=== PATIENT | male | born 1990 | race Caucasian/White ===

== ENCOUNTER 2022-05-24 15:07 | Emergency (ER) | payer SELFPAY ==
[2022-05-24] MEDS ORDERED: LIDOCAINE 1% W/EPI 1:100,000 MDV 20 ML VIAL ONE (15:47)
[2022-05-24] MEDS ORDERED: TETANUS & DIPHTHERIA TOX,ADULT 0.5 ML VIAL ONE (15:47)
--- NOTE | 2022-05-24 16:50 | EDPHYS ---
Physician Documentation [facility] Name: Ottoniel Madrigal Age: 32 yrs Sex: Male : 1990 Arrival Date: 05/24/2022 Time: 15:10 Bed 10 Private MD: ED Physician Tariq Hodges HPI: 05/24 15:40 This 32 yrs old Male presents to ER via Ambulatory with complaints of Laceration To Leg.cp 15:40 The patient has a laceration related to: working, sharp edge of sheet metal. cp 15:40 The laceration(s) is(are) located on the anterior aspect right lower leg. Onset: The cp symptoms/episode began/occurred just prior to arrival. Associated signs and symptoms: The patient has no apparent associated signs or symptoms. Historical: - Allergies: 15:29 No Known Allergies; iw - PMHx: 15:29 None; iw - Immunization history:: Last tetanus immunization: unknown. - Social history:: Smoking status: unknown. ROS: 15:45 Constitutional: Negative for body aches, chills, fever, poor PO intake. cp 15:45 Cardiovascular: Negative for chest pain. cp 15:45 Respiratory: Negative for cough, shortness of breath, wheezing. 15:45 Abdomen/GI: Negative for abdominal pain, nausea, vomiting, and diarrhea. 15:45 Skin: Positive for laceration(s), of the anterior aspect right lower leg. 15:45 Neuro: Negative for altered mental status, headache, numbness, weakness. 15:45 All other systems are negative. Exam: 15:50 Head/Face: Normocephalic, atraumatic. cp 15:50 Constitutional: The patient appears in no acute distress, alert, awake, non-toxic, well developed, well nourished. 15:50 Chest/axilla: Inspection: normal. cp 15:50 Cardiovascular: Rate: normal. 15:50 Respiratory: the patient does not display signs of respiratory distress, Respirations: normal. 15:50 Musculoskeletal/extremity: Extremities: noted in the anterior aspect right lower leg: laceration, swelling, tenderness, mild bleeding, Perfusion: the extremity is normally perfused throughout, Sensation intact. Vital Signs: 15:28 BP 159 / 85; Pulse 90; Resp 16; Temp 97.6; Pulse Ox 97% ; iw 16:36 BP 155 / 82; Pulse 86; Resp 18; Pulse Ox 98% on R/A; Pain 7/10; ld1 Laceration: 17:00 Wound Repair of 4cm ( 1.6in ) subcutaneous laceration to anterior aspect right lower cp leg. Linear shaped.. Distal neuro/vascular/tendon intact. Anesthesia: Wound infiltrated with 8 mls of 1% lidocaine w/ Epi. Wound prep: Moderate cleansing by nurse, Wound irrigation by me. Skin closed with 7 4-0 Prolene using interrupted sutures and sterile technique. Dressed with 4x4's. Patient tolerated well. MDM: 15:31 Patient medically screened. cp 16:00 Differential diagnosis: superficial laceration, tendon injury, vascular injury. cp 16:49 Data reviewed: vital signs, nurses notes, radiologic studies, plain films. cp 16:49 Test interpretation: by ED physician or midlevel provider: plain radiologic studies. cp Counseling: I had a detailed discussion with the patient and/or guardian regarding: the historical points, exam findings, and any diagnostic results supporting the discharge/admit diagnosis, radiology results, the need for outpatient follow up, a family practitioner, to return to the emergency department if symptoms worsen or persist or if there are any questions or concerns that arise at home. Response to treatment: the patient's symptoms have markedly improved after treatment, and as a result, I will discharge patient. Special discussion: wound care, monitor for signs of infection, suture removal in 10-14 days, signs and symptoms of compartment syndrome. 05/24 15:35 Order name: XRAY Tib Fib RIGHT; Complete Time: 17:00 05/24 17:00 Interpretation: Report reviewed. 05/24 15:35 Order name: Wound Care: please clean and irrigate wound; Complete Time: 15:54 05/24 15:35 Order name: Dressing - Wound; Complete Time: 15:40 05/24 15:35 Order name: Gloves, Sterile; Complete Time: 15:40 05/24 15:35 Order name: Setup Suture Tray; Complete Time: 15:40 05/24 16:48 Order name: Wound dressing; Complete Time: 17:03 cp 05/24 16:48 Order name: Crutches; Complete Time: 17:03 cp Administered Medications: 15:44 Drug: Tetanus Toxoid,Adsorbed 0.5 ml {Case Operator: [employer]. Exp: 02/03/2024. Lot jl7 #: [id number]. } Route: IM; Site: right deltoid; 16:46 Follow up: Response: No adverse reaction ld1 16:46 Follow up: Response: (VIS) Vaccine information sheet provided today. Questions and/or ld1 concerns addressed. VIS edition date: Jun 16, 2021. 16:46 Drug: Lidocaine-Epinephrine -1%: (1:100,000) 10 ml {Note: Administered by manpreet Ferreira.} Volume: 20 ml; Route: Infiltration; 16:46 Follow up: Response: No adverse reaction ld1 Disposition: 18:02 Attestation: The patient's history, exam findings, diagnostics, and a summary of any [facility] interventions or procedures was reviewed in detail with Alec CARRILLO. Disposition Summary: 05/24/22 16:49 Discharge Ordered Location: Home cp Problem: new cp Symptoms: have improved cp Condition: Stable cp Diagnosis - Laceration without foreign body of lower leg - right cp Followup: cp - With: Private Physician - When: 10 - 14 days - Reason: Staple/Suture removal Discharge Instructions: - Discharge Summary Sheet cp - Laceration Care, Adult cp Forms: - Medication Reconciliation Form cp - Thank You Letter cp - Antibiotic Education cp - Prescription Opioid Use cp Prescriptions: - Ibuprofen 800 mg Oral Tablet - take 1 tablet by ORAL route every 8 hours As needed take with food; 30 tablet; cp Refills: 0, Product Selection Permitted Signatures: Dispatcher [employer] Casie Villarreal RN RN iw Page, Corey, PA PA cp Chris Chao RN RN jl7 Olena Loo RN RN ld1 Tariq Hodges MD MD [id number]
--- NOTE | 2022-05-24 16:50 | ER ---
Nurse's Notes [facility] Name: Ottoniel Madrigal Age: 32 yrs Sex: Male : 1990 Arrival Date: 05/24/2022 Time: 15:10 Bed 10 Private MD: Diagnosis: Laceration without foreign body of lower leg-right Presentation: 05/24 15:28 Chief complaint: Patient states: was pulling insulation from roof, somehow caught him iw on right ankle /baker area. Coronavirus screen: At this time, the client does not indicate any symptoms associated with coronavirus-19. Ebola Screen: Patient negative for fever greater than or equal to 101.5 degrees Fahrenheit, and additional compatible Ebola Virus Disease symptoms Patient denies exposure to infectious person. Patient denies travel to an Ebola-affected area in the 21 days before illness onset. No symptoms or risks identified at this time. Complicating Factors: There are no complicating factors for this patient. Initial Sepsis Screen: Does the patient meet any 2 criteria? No. Patient's initial sepsis screen is negative. Does the patient have a suspected source of infection? No. Patient's initial sepsis screen is negative. Risk Assessment: Do you want to hurt yourself or someone else? Patient reports no desire to harm self or others. Onset of symptoms was May 24, 2022. 15:28 Method Of Arrival: Ambulatory iw 15:28 Acuity: LETHA 4 iw Historical: - Allergies: 15:29 No Known Allergies; iw - PMHx: 15:29 None; iw - Immunization history:: Last tetanus immunization: unknown. - Social history:: Smoking status: unknown. Screenin:54 Abuse screen: Denies threats or abuse. Denies injuries from another. Nutritional jl7 screening: No deficits noted. Tuberculosis screening: No symptoms or risk factors identified. Fall Risk None identified. Assessment: 15:54 General: Appears in no apparent distress. uncomfortable, Behavior is calm, cooperative, jl7 appropriate for age. Pain: Denies pain. Neuro: Level of Consciousness is awake, alert, obeys commands, Oriented to person, place, time, situation. Cardiovascular: Patient's skin is warm and dry. Respiratory: Airway is patent Respiratory effort is even, unlabored, Respiratory pattern is regular, symmetrical. Derm: Skin is pink, warm \T\ dry. Musculoskeletal: Range of motion: intact in all extremities. Injury Description: Laceration sustained to right baker is 2.6 to 7.5 cm long, was sustained 30-60 minutes ago. is bleeding a small amount. 16:36 Reassessment: Patient appears in no apparent distress at this time. Patient is alert, ld1 oriented x 3, equal unlabored respirations, skin warm/dry/pink. Vital Signs: 15:28 BP 159 / 85; Pulse 90; Resp 16; Temp 97.6; Pulse Ox 97% ; iw 16:36 BP 155 / 82; Pulse 86; Resp 18; Pulse Ox 98% on R/A; Pain 7/10; ld1 ED Course: 15:10 Patient arrived in ED. am2 15:18 Alec Lutz PA is PHCP. cp 15:19 Tariq Hodges MD is Attending Physician. cp 15:29 Triage completed. iw 15:29 Arm band placed on. iw 15:54 Patient has correct armband on for positive identification. Bed in low position. Call jl7 light in reach. Side rails up X 1. 15:54 Wound care: to laceration located on right baker was cleaned with Betadine, irrigated jl7 with normal saline, Patient tolerated well. 15:59 Chris Chao RN is Primary Nurse. jl7 16:48 XRAY Tib Fib RIGHT In Process Unspecified. EDMS 17:03 Assist provider with laceration repair on right leg using sutures. Set up tray. ld1 Performed by Alec CARRILLO Dressed with Kerlix, Patient tolerated well. 17:04 Patient did not have IV access during this emergency room visit. ld1 Administered Medications: 15:44 Drug: Tetanus Toxoid,Adsorbed 0.5 ml {Size Tester: [employer]. Exp: 02/03/2024. Lot jl7 #: [id number]. } Route: IM; Site: right deltoid; 16:46 Follow up: Response: No adverse reaction ld1 16:46 Follow up: Response: (VIS) Vaccine information sheet provided today. Questions and/or ld1 concerns addressed. VIS edition date: Jun 16, 2021. 16:46 Drug: Lidocaine-Epinephrine -1%: (1:100,000) 10 ml {Note: Administered by manpreet Ferreira.} Volume: 20 ml; Route: Infiltration; 16:46 Follow up: Response: No adverse reaction ld1 Medication: 15:54 Vaccine Information Statement (VIS) provided today. Questions and/or concerns jaycee addressed. VIS edition date: June 16, 2021. Outcome: 16:49 Discharge ordered by . cp 17:03 Discharged to home ambulatory, with crutches. ld1 17:03 Condition: stable 17:03 Discharge instructions given to patient, Instructed on discharge instructions, follow up and referral plans. medication usage, Demonstrated understanding of instructions, follow-up care, medications, Prescriptions given X 1. 17:04 Patient left the ED. ld1 Signatures: Dispatcher [employer] EDMS Casie Argueta RN RN iw Alec Lutz, GERARDO PA Chris Garcia RN RN jl7 Arabella Anton Lauren RN RN ld1 Corrections: (The following items were deleted from the chart) 15:30 15:28 Resp 16bpm; Pulse Ox 97%; Temp 97.6F; iw iw
--- NOTE | 2022-05-24 16:53 | RAD REPORT ---
EXAM DESCRIPTION: RAD - Tib Fib Right - 05/24/2022 4:46 pm CLINICAL HISTORY: injury COMPARISON: No comparisons FINDINGS: No fracture or dislocation is seen.
[2022-05-24 17:13] VITALS: TEMP 97.6
[2022-05-24 17:20] VITALS: BP 155/82; O2SAT 98
== END 2022-05-24 17:04 | disposition home or self-care (01) ==
LOC: ER 15:07
PROC: 0JQN0ZZ Repair Right Lower Leg Subcutaneous Tissue and Fascia, Open Approach (ICD-10-PCS; principal; 2022-05-24)
DX: S81.811A Laceration without foreign body, right lower leg, initial encounter (principal); Z23 Encounter for immunization
CPT/HCPCS: 90471; 90714; 99284

== ENCOUNTER 2024-11-10 15:04 | Emergency (ER) | payer OTHER, SELFPAY ==
--- OUTSIDE RECORDS SUMMARY | 2024-11-10 15:06 | XMS REPORT | Continuity of Care Document ---
Author Name Unknown Address [address] [place] [address] [facility] Address [address] [place] [address] Care Team Providers Care [place] Aide Name Role Phone Elisa Saleh Primary Care Physician [phone] Yan_W Attending Clinician Unavailable Yan_W Admitting Clinician Unavailable Allergies, Adverse Reactions, Alerts Allergy Name Allergy Type Status Severity Reaction(s) Onset Date Inactive Date Treating Clinician Comments Source Cefaclor - Oral Propensi ty to adverse reaction to drug Active 01-17 00:00: 00 Jovan Singh Medications Ordered Medication Name Filled Medication Name Start Date Stop Date Current Medication? Ordering Clinician Indication Dosage Frequency Signature (SIG) Comments Components Source albuterol sulfate HFA 90 mcg/actuati on aerosol inhaler 07-30 00:00: 00 Yes 1mcg/ac tuation Jovan Singh montelukast 10 mg tablet 07-30 00:00: 00 Yes 1mg Jovan Singh albuterol sulfate HFA 90 mcg/actuati on aerosol inhaler 01-16 00:00: 00 Yes 1mcg/ac tuation Jovan Singh montelukast 10 mg tablet 01-16 00:00: 00 Yes 1mg Jovan Singh prednisone 50 mg tablet 01-16 00:00: 00 Yes 1mg Jovan Singh TAKE 1 CAPSULE BY MOUTH THREE TIMES DAILY WITH FOOD AND PLENTY OF WATER UNTIL ALL TAKEN 2022-11 2-18 00:00: 00 Yes Jovan Singh TAKE 2 TABLETS BY MOUTH DAILY FOR 5 DAYS 2022-11 0-22 00:00: 00 Yes Jovan Singh INHALE 2 PUFFS EVERY 4-6 HOURS, SPACED 60 SECONDS APART. 2022-11 0-17 00:00: 00 Yes [id number] Jovan Singh TAKE 1 TABLET BY MOUTH TWICE DAILY NEEDED FOR PAIN -13 00:00: 00 Yes Jovan Singh INHALE 2 PUFFS EVERY 4-6 HOURS, SPACED 60 SECONDS APART. 9- 00:00: 00 02-25 00:00 :00 No [id number] Jovan Singh INHALE 2 PUFFS EVERY 4-6 HOURS, SPACED 60 SECONDS APART. - 00:00: 00 Yes [id number] Jovan Singh TAKE 1 TABLET BY MOUTH THREE TIMES DAILY NEEDED FOR DIZZINESS - 00:00: 00 Yes Jovan Singh TAKE 1 TABLET BY MOUTH TWICE DAILY FOR 10 DAYS 6-06 00:00: 00 Yes Jovan Singh INHALE 2 PUFFS BY MOUTH EVERY 6 HOURS FOR 30 DAYS 5-19 00:00: 00 02-25 00:00 :00 No Jovan Gabriel Francisco FOLLOW PACKAGE DIRECTIONS -18 00:00: 00 Yes Jovan Singh TAKE 1 TABLET BY MOUTH EVERY 12 HOURS -15 00:00: 00 Yes Jovan Singh INHALE 2 PUFFS EVERY 4-6 HOURS, SPACED 60 SECONDS APART. 3-09 00:00: 00 02-25 00:00 :00 No [id number] Jovan Singh TAKE ONE CAPSULE BY MOUTH EVERY 8 HOURS NEEDED FOR COUGH 2021-11 0-09 00:00: 00 Yes Jovan Singh TAKE 2 TABLETS BY MOUTH DAILY FOR 4 DAYS 2021-11 0-09 00:00: 00 Yes Jovan Singh INHALE 2 PUFFS EVERY 6 HOURS NEEDED FOR WHEEZING 2021-11 0-09 00:00: 00 02-25 00:00 :00 No Jovan Singh TAKE 1 TABLET BY MOUTH EVERY 8 HOURS NEEDED FOR PAIN TAKE WITH FOOD 05-24 00:00: 00 Yes Jovan F Francisco Vital Signs Vital Name Observation Time Observation Value Comments S ource BP Diastolic 2024-07-30 14:39:00 77 mm[Hg] Asad phen F Francisco Weight Measured 2024-07-30 14:39:00 200.10 pounds Jovan F Francisco Height Measured 2024-07-30 14:39:00 68.00 inches Jovan F Francisco Body Temperature 2024-07-30 14:39:00 98.10 degrees Jovan F Francisco Heart Rate 2024-07-30 14:39:00 75.00 /min Erma en F Francisco Respiratory Rate 2024-07-30 14:39:00 17.00 /min Jovan F Francisco BP Systolic 2024-07-30 14:39:00 131 mm[Hg] Step hen F Francisco BP Systolic 2024-01-17 13:12:00 131 mm[Hg] Step hen F Francisco BP Diastolic 2024-01-17 13:12:00 86 mm[Hg] Asad phen F Francisco Weight Measured 2024-01-17 13:12:00 212.40 pounds Jovan F Francisco Height Measured 2024-01-17 13:12:00 68.00 inches Jovan F Francisco Body Temperature 2024-01-17 13:12:00 97.30 degrees Jovan F Francisco Heart Rate 2024-01-17 13:12:00 79.00 /min Erma en F Francisco Respiratory Rate 2024-01-17 13:12:00 17.00 /min Jovan F Francisco BP Systolic 2023-08-27 15:01:00 135 mm[Hg] Step hen F Francisco BP Diastolic 2023-08-27 15:01:00 93 mm[Hg] Asad phen F Francisco Weight Measured 2023-08-27 15:01:00 231.40 pounds Jovan F Francisco Height Measured 2023-08-27 15:01:00 68.00 inches Jovan F Francisco Body Temperature 2023-08-27 15:01:00 98.70 degrees Jovan F Francisco Heart Rate 2023-08-27 15:01:00 90.00 /min Erma en F Francisco Respiratory Rate 2023-08-27 15:01:00 16.00 /min Jovan F Francisco BP Systolic 2023-01-17 09:23:00 147 mm[Hg] Roman Singh BP Diastolic 2023-01-17 09:23:00 97 mm[Hg] Asad Singh Weight Measured 2023-01-17 09:23:00 231.20 pounds Jovan Singh Height Measured 2023-01-17 09:23:00 68.00 inches Jovan Singh Body Temperature 2023-01-17 09:23:00 97.50 degrees Jovan Singh Heart Rate 2023-01-17 09:23:00 90.00 /min Erma Singh Respiratory Rate 2023-01-17 09:23:00 Jovan Singh Encounters Start Date/Time End Date/Time Encounter Type Admission Type Attending [facility] Care Department Encounter ID Source 2024-07-30 14:37:00 2024-07-30 14:37:00 Outpatient SFA SFA [id number] Jovan Singh 2024-07-30 00:00:00 2024-07-30 00:00:00 Outpatient Visit SFA [id number] Jovan Singh 2024-01-17 13:10:57 2024-01-17 13:10:57 Outpatient SFA [id number] [id number] Jovan Singh 2023-08-27 14:47:32 2023-08-27 14:47:32 Outpatient SFA [id number] [id number] Jovan Singh 2023-01-22 09:07:10 2023-01-22 09:07:10 Outpatient SFA [id number] [id number] Jovan Singh 2023-01-17 09:23:32 2023-01-17 09:23:32 Outpatient SFA [id number] [id number] Jovan Singh 2021-08-09 04:35:00 2021-08-09 04:35:00 Outpatient Yan_W MMG [id number] [facility] Results Test Description Test Time Test Comments Results Result Co mments Source COMPREHENSIVE METABOLIC [id number] 05:43:25* Test Item Value Reference Range Interpretation Comme nts GLUCOSE (test code = 2217) 99 MG/DL 70-99 BUN (test code = 2208) 14 MG/DL 6-20 CREATININE (test code = 2213) 0.92 MG/DL 0.80-1.40 eGFR (2020 CKD-EPI) (test code = ) 114 ML/MIN/1.73 >60 CALC BUN/CREAT (test code = 2234) 15 RATIO 6-28 SODIUM (test code = 2230) 143 MEQ/L 133-146 POTASSIUM (test code = 2227) 4.9 MEQ/L 3.5-5.4 CHLORIDE (test code = 2214) 104 MEQ/L 95-107 CARBON DIOXIDE (test code = 2205) 27 MEQ/L 19-31 CALCIUM (test code = 2208) 9.6 MG/DL 8.5-10.5 PROTEIN, TOTAL (test code = 2228) 7.6 G/DL 6.1-8.3 ALBUMIN (test code = 2200) 4.9 G/DL 3.5-5.2 CALC GLOBULIN (test code = 0) 2.7 G/DL 1.9-3.7 CALC A/G RATIO (test code = 2233) 1.8 RATIO 1.0-2.6 BILIRUBIN, TOTAL (test code = 2206) 0.4 MG/DL See_Comment [Automated me ssage] The system which generated this result transmitted reference range: <=1.2. The reference range was not used to interpret this result as normal/abnormal. ALKALINE PHOSPHATASE (test code = 2203) 104 U/L 40-112 AST (test code = 2217) 57 U/L 9-50 H ALT (test code = 2219) 54 U/L 5-50 H [facility] has impo rtant pathology staff changes effective 01/09/2023. New pathology staff will provide uninterrupted, excellent patient care and clinical consultation. See URL: [email or web address]. UNLESS OTHERWISE INDICATED, ALL TESTING PERFORMED AT [facility] [address] [place] [id number] [employer] OPERATOR HELPER: AMI CHU M.D. CLIA NUMBER [id number] [facility] [place]. [id number] HEMOGLOBIN [id number] 04:25:41* Test Item Value Reference Range Interpretation Comme nts HEMOGLOBIN A1c (test code = 96135) 5.7 % 4.2-5.6 H [employer] GUIDELINES FOR HGB A1C: PREDIABETES/INCREASED RISK . . . . . . . 5.7-6.4% DIAGNOSIS OF DIABETES . . . . . . . . . >=6.5% WITH CONFIRMATION OR APPROPRIATE SYMPTOMS NOTE: ASSAY MAY BE AFFECTED BY HEMOGLOBINOPATHIES (SICKLE CELL ANEMIA, S-C DISEASE, OTHERS) OR ARTIFICIALLY LOWERED BY DECREASED RED CELL SURVIVAL (HEMOLYTIC ANEMIAS, BLOOD LOSS, ETC.). CONSIDER ALTERNATE TESTING OR LABORATORY CONSULTATION. CBC W/AUTO DIFF WITH [id number] 03:40:15* Test Item Value Reference Range Interpretation Comme nts WBC (test code = 1001) 17.4 K/UL 3.5-11.0 H RBC (test code = 1002) 5.30 M/UL 4.50-6.10 HEMOGLOBIN (test code = 1003) 15.6 G/DL 13.5-17.0 HEMATOCRIT (test code = 1004) 46.1 % 40.0-51.0 MCV (test code = 1005) 87.0 fL 80.0-99.0 MCH (test code = 1006) 29.4 PG 25.0-33.0 MCHC (test code = 1007) 33.8 G/DL 31.0-36.0 RDW (test code = 1038) 13.3 % 11.5-15.0 NEUTROPHILS (test code = 1008) 81.0 % LYMPHOCYTES (test code = 1010) 8.5 % MONOCYTES (test code = 1011) 6.5 % EOSINOPHILS (test code = 1012) 2.8 % BASOPHILS (test code = 1013) 0.7 % IMMATURE GRANULOCYTES (test code = 1036) 0.5 % NUCLEATED RBCS (test code = 1065) 0.0 /100 WBC'S See_Comment [Automated [employer] ge] The system which generated this result transmitted reference range: 0.0. The reference range was not used to interpret this result as normal/abnormal. PLATELET COUNT (test code = 1015) 310 K/UL 130-400 ABSOLUTE NEUTROPHILS (test code = 1066) 14.12 K/UL 1.50-7.50 H ABSOLUTE LYMPHOCYTES (test code = 1067) 1.49 K/UL 1.00-4.00 ABSOLUTE MONOCYTES (test code = 1068) 1.14 K/UL 0.20-1.00 H ABSOLUTE EOSINOPHILS (test code = 1040) 0.48 K/UL 0.00-0.50 ABSOLUTE BASOPHILS (test code = 1069) 0.12 K/UL 0.00-0.20 ABS IMMATURE GRANULOCYTES (test code = 1020) 0.09 K/UL 0.00-0.10 ABS NUCLEATED RBCS (test code = 59856) 0.00 K/UL 0.00-0.11 CBC W/AUTO [id number] 00:00:00* Test Item Value Reference Range Interpretation Comme nts WBC (test code = 1001) 17.4 K/UL RBC (test code = 1002) 5.30 M/UL HEMOGLOBIN (test code = 1003) 15.6 G/DL HEMATOCRIT (test code = 1004) 46.1 % MCV (test code = 1005) 87.0 fL MCH (test code = 1006) 29.4 PG MCHC (test code = 1007) 33.8 G/DL RDW (test code = 1038) 13.3 % NEUTROPHILS (test code = 1008) 81.0 % LYMPHOCYTES (test code = 1010) 8.5 % MONOCYTES (test code = 1011) 6.5 % EOSINOPHILS (test code = 1012) 2.8 % BASOPHILS (test code = 1013) 0.7 % IMMATURE GRANULOCYTES (test code = 1036) 0.5 % NUCLEATED RBCS (test code = 1065) 0.0 /100WBC'S PLATELET COUNT (test code = 1015) 310 K/UL ABSOLUTE NEUTROPHILS (test c ode = 1066) 14.12 K/UL ABSOLUTE LYMPHOCYTES (test c ode = 1067) 1.49 K/UL ABSOLUTE MONOCYTES (test cod e = 1068) 1.14 K/UL ABSOLUTE EOSINOPHILS (test c ode = 1040) 0.48 K/UL ABSOLUTE BASOPHILS (test cod e = 1069) 0.12 K/UL ABS IMMATURE GRANULOCYTES (t est code = 1020) 0.09 K/UL ABS NUCLEATED RBCS (test cod e = 31876) 0.00 K/UL Jovan SinghHEMOGLOBIN [id number] 00:00:00* Test Item Value Reference Range Interpretation Comme nts HEMOGLOBIN A1c (test code = 40717) 5.7 % Jovan SinghLIPID [id number] 00:00:00* Test Item Value Reference Range Interpretation Comme nts CHOLESTEROL (test code = 2210) 163 MG/DL TRIGLYCERIDES (test code = 2232) 246 MG/DL HDL CHOLESTEROL (test code = 2220) 27 MG/DL CALC LDL CHOL (test code = 2237) 99 MG/DL RISK RATIO LDL/HDL (test cod e = 2238) 3.67 RATIO Jovan Gabriel FranciscoCOMPREHENSIVE METABOLIC [id number] 00:00:00* Test Item Value Reference Range Interpretation Comme nts GLUCOSE (test code = 2217) 99 MG/DL BUN (test code = 2208) 14 MG/DL CREATININE (test code = 2214) 0.92 MG/DL eGFR (2020 CKD-EPI) (test code = 68513) 114 ML/MIN/1.73 CALC BUN/CREAT (test code = 2235) 15 RATIO SODIUM (test code = 2231) 143 MEQ/L POTASSIUM (test code = 2228) 4.9 MEQ/L CHLORIDE (test code = 2215) 104 MEQ/L CARBON DIOXIDE (test code = 2206) 27 MEQ/L CALCIUM (test code = 2209) 9.6 MG/DL PROTEIN, TOTAL (test code = 2229) 7.6 G/DL ALBUMIN (test code = 2201) 4.9 G/DL CALC GLOBULIN (test code = 2240) 2.7 G/DL CALC A/G RATIO (test code = 2234) 1.8 RATIO BILIRUBIN, TOTAL (test code = 2207) 0.4 MG/DL ALKALINE PHOSPHATASE (test code = 2204) 104 U/L AST (test code = 2218) 57 U/L ALT (test code = 2219) 54 U/L Jovan Singh
[2024-11-10] MEDS ORDERED: METHYLPREDNISOLONE 125 MG INJ ONE (15:51)
[2024-11-10] MEDS ORDERED: IPRATROPIUM BROM 0.5MG/2.5ML ONE (15:51)
[2024-11-10] MEDS ORDERED: ALBUTEROL 2.5 MG/3 ML NEB SOL ONE ×2 (15:51→16:50)
--- NOTE | 2024-11-10 17:05 | ER ---
Nurse's Notes [facility] Name: Ottoniel Madrigal Age: 34 yrs Sex: Male : 1990 Arrival Date: 11/10/2024 Time: 15:04 Bed 4 Private MD: Diagnosis: Unspecified asthma, uncomplicated Presentation: 11/10 15:27 Chief complaint: Patient states: difficulty breathing for about a week, inhaler isnt ko1 working and its worse today. Coronavirus screen: At this time, the client does not indicate any symptoms associated with coronavirus-19. Ebola Screen: No symptoms or risks identified at this time. Initial Sepsis Screen: Does the patient meet any 2 criteria? No. Patient's initial sepsis screen is negative. Does the patient have a suspected source of infection? No. Patient's initial sepsis screen is negative. Risk Assessment: Do you want to hurt yourself or someone else? Patient reports no desire to harm self or others. Onset of symptoms was November 10, 2024. 15:27 Method Of Arrival: Ambulatory ko1 15:27 Acuity: LETHA 2 ko1 Triage Assessment: 15:32 General: Appears uncomfortable, Behavior is calm, cooperative, appropriate for age. ko1 Pain: Denies pain. Respiratory: Reports shortness of breath at rest Onset: The symptoms/episode began/occurred gradually, the patient has moderate shortness of breath. Historical: - Allergies: 15:32 Ceclor; ko1 - Home Meds: 15:32 albuterol sulfate 90 mcg/actuation inhalation HFA Aerosol Inhaler [Active]; ko1 - PMHx: 15:32 Asthma; ko1 - PSHx: 15:32 None; ko1 - Immunization history:: Adult Immunizations up to date. - Infectious Disease History:: Denies. - Social history:: Smoking status: Patient/guardian denies using tobacco, but has a distant history of tobacco abuse. Screenin:45 [facility] ED Fall Risk Assessment (Adult) History of falling in the last 3 months, rs5 including since admission No falls in past 3 months (0 pts) Confusion or Disorientation No (0 pts) Intoxicated or Sedated No (0 pts) Impaired Gait No (0 pts) Mobility Assist Device Used No (0 pt) Altered Elimination No (0 pt) Score/Fall Risk Level 0 - 2 = Low Risk Oriented to surroundings, Maintained a safe environment. Abuse screen: Denies threats or abuse. Nutritional screening: No deficits noted. Tuberculosis screening: No symptoms or risk factors identified. Assessment: 15:40 General: Appears in no apparent distress. uncomfortable, Behavior is calm, cooperative. rs5 Pain: Denies pain. Neuro: Level of Consciousness is awake, alert, obeys commands, Oriented to person, place, time, situation. Cardiovascular: Patient's skin is warm and dry. Rhythm is regular. Respiratory: Reports shortness of breath Airway is patent Respiratory effort is even, unlabored, Respiratory pattern is regular, symmetrical, Breath sounds are clear. GI: Abdomen is round non-distended, Abd is soft and non tender X 4 quads. : No signs and/or symptoms were reported regarding the genitourinary system. EENT: No signs and/or symptoms were reported regarding the EENT system. Derm: Skin is intact, Skin is pink, warm \T\ dry. Musculoskeletal: Range of motion: intact in all extremities. 16:06 Reassessment: Patient and/or family updated on plan of care and expected duration. Pain rs5 level reassessed. Patient is alert, oriented x 3, equal unlabored respirations, skin warm/dry/pink. 17:08 Reassessment: Patient and/or family updated on plan of care and expected duration. Pain rs5 level reassessed. Patient is alert, oriented x 3, equal unlabored respirations, skin warm/dry/pink. Vital Signs: 15:27 BP 136 / 97; Pulse 99; Resp 22; Temp 97.7; Pulse Ox 96% on R/A; ko1 17:08 BP 127 / 81; Pulse 77; Resp 17; Pulse Ox 98% on R/A; rs5 ED Course: 15:05 Patient arrived in ED. al6 15:13 Kelley [facility]C [facility] kb 15:13 Mateo Johnson MD is Attending Physician. kb 15:31 Triage completed. ko1 15:32 Arm band placed on right wrist. Patient placed in an exam room, on a stretcher, on ko1 oxygen, on pulse oximetry, Patient notified of wait time. 15:40 Patient has correct armband on for positive identification. Bed in low position. Call rs5 light in reach. Side rails up X2. 15:49 Barry, Josh, RN is Primary Nurse. rs5 16:07 No provider procedures requiring assistance completed. rs5 17:15 Provided Education on: discharge instructions . rs5 17:20 Patient did not have IV access during this emergency room visit. rs5 Administered Medications: 15:55 Drug: MethylPREDNISolone Sodium Succinate IM 125 mg IM once Route: IM; Site: left rs5 deltoid; 16:20 Follow up: Response: No adverse reaction rs5 16:05 Drug: DuoNeb Nebulize (3:1) (2.5 mg - 0.5 mg) 3 ml Nebulizer once Route: Nebulizer; rs5 16:20 Follow up: Response: No adverse reaction rs5 16:50 Drug: Albuterol Inhalation 2.5 mg Inhalation once Route: Inhalation; rs5 17:17 Follow up: Response: No adverse reaction rs5 Medication: 17:18 VIS not applicable for this client. rs5 Outcome: 17:05 Discharge ordered by . kb 17:20 Discharged to home ambulatory, rs5 17:20 Condition: stable rs5 17:20 Discharge instructions given to patient, family, Instructed on discharge instructions, follow up and referral plans. medication usage, Demonstrated understanding of instructions, follow-up care, medications, Prescriptions given X 2, 17:23 Patient left the ED. rs5 Signatures: Kelley Lange FNP-C FNP-Gaviota Jenkins RN RN ko1 Josh Barry, RN RN rs5 Angie Mckeon6 Corrections: (The following items were deleted from the chart) 15:35 15:32 Social history: Smoking status: unknown piero harry
--- NOTE | 2024-11-10 17:05 | EDPHYS ---
Physician Documentation [facility] Name: Ottoniel Madrigal Age: 34 yrs Sex: Male : 1990 Arrival Date: 11/10/2024 Time: 15:04 Bed 4 Private MD: ED Physician Mateo Johnson HPI: 11/10 17:04 This 34 yrs old Male presents to ER via Ambulatory with complaints of Breathing kb Difficulty. 17:04 Patient is a 34-year-old male with a history of asthma who presents for shortness of kb breath and wheezing that started a week ago and is gotten worse. States has been using his albuterol inhaler but is not working. Denies congestion, fever. No aggravating or alleviating factors. States this feels like similar asthma attacks in the past.. Historical: - Allergies: 15:32 Ceclor; ko1 - Home Meds: 15:32 albuterol sulfate 90 mcg/actuation inhalation HFA Aerosol Inhaler [Active]; ko1 - PMHx: 15:32 Asthma; ko1 - PSHx: 15:32 None; ko1 - Immunization history:: Adult Immunizations up to date. - Infectious Disease History:: Denies. - Social history:: Smoking status: Patient/guardian denies using tobacco, but has a distant history of tobacco abuse. ROS: 16:59 Constitutional: As per HPI kb Exam: 16:59 Constitutional: This is a well developed, well nourished patient who is awake, alert, kb and in no acute distress. Head/Face: Normocephalic, atraumatic. ENT: Moist Mucous membranes Cardiovascular: Regular rate Abdomen/GI: Soft, non-tender. No distention Skin: Warm, dry with normal turgor. Normal color. MS/ Extremity: Pulses equal, no cyanosis. Neurovascular intact. Full, normal range of motion. Neuro: Awake and alert, GCS 15, oriented to person, place, time, and situation. 16:59 Respiratory: mild respiratory distress is noted, Respirations: labored breathing, that is mild, Breath sounds: wheezing: inspiratory expiratory that is moderate, is heard diffusely, Vital Signs: 15:27 BP 136 / 97; Pulse 99; Resp 22; Temp 97.7; Pulse Ox 96% on R/A; ko1 17:08 BP 127 / 81; Pulse 77; Resp 17; Pulse Ox 98% on R/A; rs5 MDM: 15:13 Medical Screening Exam initiated kb 16:59 Data reviewed: vital signs, nurses notes. Counseling: I had a detailed discussion with kb the patient and/or guardian regarding the historical points, exam findings, and any diagnostic results supporting the discharge/admit diagnosis, radiology results, the need for outpatient follow up, a family practitioner, to return to the emergency department if symptoms worsen or persist or if there are any questions or concerns that arise at home. ED course: symptoms improved after treatment. 17:00 Differential diagnosis: asthma exacerbation, bronchitis, uri. Test considered but Not kb performed: X-ray: CXR considered but wheezing diffuse and improved after treatment. no cough, fever prior to symptom onset. Pt states this is similar to previous asthma attacks. Administered Medications: 15:55 Drug: MethylPREDNISolone Sodium Succinate IM 125 mg IM once Route: IM; Site: left rs5 deltoid; 16:20 Follow up: Response: No adverse reaction rs5 16:05 Drug: DuoNeb Nebulize (3:1) (2.5 mg - 0.5 mg) 3 ml Nebulizer once Route: Nebulizer; rs5 16:20 Follow up: Response: No adverse reaction rs5 16:50 Drug: Albuterol Inhalation 2.5 mg Inhalation once Route: Inhalation; rs5 17:17 Follow up: Response: No adverse reaction rs5 Disposition: 17:27 Co-signature as Attending Physician, Mateo Johnson MD I reviewed the patient's care rn provided by the Advanced Practice Provider and agree with the diagnosis and treatment plan. Disposition Summary: 11/10/24 17:05 Discharge Ordered Notes: Location: Home kb Condition: Stable kb Diagnosis - Unspecified asthma, uncomplicated kb Followup: kb - With: Emergency Department - When: As needed - Reason: Worsening of condition Followup: kb - With: Private Physician - When: 2 - 3 days - Reason: Recheck today's complaints, Continuance of care, Re-evaluation by your physician Discharge Instructions: - Discharge Summary Sheet kb - Asthma, Adult, [id number] kb Forms: - Medication Reconciliation Form kb - Antibiotic Education kb - Prescription Opioid Use kb - Patient Portal Instructions kb - Leadership Thank You Letter kb Prescriptions: - albuterol sulfate 90 mcg/actuation Inhalation HFA Aerosol Inhaler - inhale 2 puff INHALATION route every 4-6 hours As needed; 1 unit; Refills: 0, kb Product Selection Permitted - Prednisone 20 mg Oral Tablet - take 1 tablet ORAL route once daily for 5 days; 5 tablet; Refills: 0, Product kb Selection Permitted Signatures: Kelley Lange FNP-C [employer]-Mateo Walsh MD MD rn Oliver, Kathy, RN RN ko1 Josh Barry RN RN rs5 Corrections: (The following items were deleted from the chart) 15:35 15:32 Social history: Smoking status: unknown ko1 ko1
[2024-11-10 23:54] VITALS: BP 136/97; TEMP 97.7; O2SAT 96
== END 2024-11-10 17:23 | disposition home or self-care (01) ==
LOC: ER 15:04
DX: J45.909 Unspecified asthma, uncomplicated (principal)
CPT/HCPCS: 96372; 99285; J7613 ×2; J7644; J2919

== ENCOUNTER 2025-08-22 11:51 | Emergency (ER) | payer OTHER ==
--- OUTSIDE RECORDS SUMMARY | 2025-08-22 11:55 | XMS REPORT | Continuity of Care Document ---
Author Name Unknown Address [address] [place] [address] [facility] Address 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 Ordering Clinician Indication Dosage Frequency Signature (SIG) Comments Components Source albuterol sulfate HFA 90 mcg/actuati on aerosol inhaler - 00:00: 00 Yes 1mcg/ac tuation Jovan Singh Symbicort 160 mcg-4.5 mcg/actuati on HFA aerosol inhaler 2-17 00:00: 00 Yes 1mcg/ac tuation Jovan Singh prednisone 5 mg tablet -17 00:00: 00 Yes 1mg Jovan Singh cetirizine 10 mg tablet 2-17 00:00: 00 Yes 1mg Jovan Singh albuterol sulfate HFA 90 mcg/actuati on aerosol inhaler 1-20 00:00: 00 Yes 1mcg/ac tuation Jovan Singh albuterol sulfate HFA 90 mcg/actuati on aerosol inhaler 0 - 00:00: 00 Yes 1mcg/ac tuation Jovan Singh montelukast 10 mg tablet 0 - 00:00: 00 Yes 1mg Jovan Singh albuterol sulfate HFA 90 mcg/actuati on aerosol inhaler - 00:00: 00 Yes 1mcg/ac tuation Jovan Singh montelukast 10 mg tablet -08 00:00: 00 Yes 1mg Jovan Singh prednisone 50 mg tablet - 00:00: 00 Yes 1mg Jovan Singh TAKE 1 CAPSULE BY MOUTH THREE TIMES DAILY WITH FOOD AND PLENTY OF WATER UNTIL ALL TAKEN 2022-11-18 00:00: 00 Yes Jovan Singh TAKE 2 TABLETS BY MOUTH DAILY FOR 5 DAYS 2022-11 0-22 00:00: 00 Yes Jovan Singh INHALE 2 PUFFS EVERY 4-6 HOURS, SPACED 60 SECONDS APART. 2022-11 0-17 00:00: 00 Yes [id number] Jovan Singh TAKE 1 TABLET BY MOUTH TWICE DAILY NEEDED FOR PAIN -13 00:00: 00 Yes Jovan Singh INHALE 2 PUFFS EVERY 4-6 HOURS, SPACED 60 SECONDS APART. - 00:00: 00 02-25 00:00 :00 No [id number] Jovan Singh INHALE 2 PUFFS EVERY 4-6 HOURS, SPACED 60 SECONDS APART. 0 9- 00:00: 00 Yes [id number] Jovan Singh TAKE 1 TABLET BY MOUTH THREE TIMES DAILY NEEDED FOR DIZZINESS 8-31 00:00: 00 Yes Jovan Singh TAKE 1 TABLET BY MOUTH TWICE DAILY FOR 10 DAYS 0 6-06 00:00: 00 Yes Jovan Singh INHALE 2 PUFFS BY MOUTH EVERY 6 HOURS FOR 30 DAYS 0 -19 00:00: 00 02-25 00:00 :00 No Jovan Singh FOLLOW PACKAGE DIRECTIONS 0 -18 00:00: 00 Yes Jovan Singh TAKE 1 TABLET BY MOUTH EVERY 12 HOURS 2023-0 3-15 00:00: 00 Yes Jovan Singh INHALE 2 PUFFS EVERY 4-6 HOURS, SPACED 60 SECONDS APART. 09 00:00: 00 02-25 00:00 :00 No [id number] Jovan Singh TAKE ONE CAPSULE BY MOUTH EVERY 8 HOURS NEEDED FOR COUGH 2021-11 009 00:00: 00 Yes Jovan Singh TAKE 2 TABLETS BY MOUTH DAILY FOR 4 DAYS 2021-11 0 00:00: 00 Yes Jovan Singh INHALE 2 PUFFS EVERY 6 HOURS NEEDED FOR WHEEZING 2021-11 009 00:00: 00 02-25 00:00 :00 No Jovan Singh TAKE 1 TABLET BY MOUTH EVERY 8 HOURS NEEDED FOR PAIN TAKE WITH FOOD 05-24 00:00: 00 Yes Jovan Singh Vital Signs Vital Name Observation Time Observation Value Comments S ource BP Systolic 2024-12-28 17:30:00 137 mm[Hg] Step hen F Francisco BP Diastolic 2024-12-28 17:30:00 100 mm[Hg] Asad phen F Francisco Weight Measured 2024-12-28 17:30:00 219.00 pounds Jovan Singh Height Measured 2024-12-28 17:30:00 68.00 inches Jovan Nery Singh Body Temperature 2024-12-28 17:30:00 98.20 degrees Jovan Nery Singh Heart Rate 2024-12-28 17:30:00 89.00 /min Erma en F Francisco Respiratory Rate 2024-12-28 17:30:00 17.00 /min Jovan Nery Singh BP Systolic 2024-12-28 16:46:00 137 mm[Hg] Step hen F Francisco BP Diastolic 2024-12-28 16:46:00 100 mm[Hg] Asad phen F Francisco Weight Measured 2024-12-28 16:46:00 219.00 pounds Jovan Nery Singh Height Measured 2024-12-28 16:46:00 68.00 inches Jovan Nery Singh Body Temperature 2024-12-28 16:46:00 98.20 degrees Jovan Nery Singh Heart Rate 2024-12-28 16:46:00 89.00 /min Erma en F Francisco Respiratory Rate 2024-12-28 16:46:00 17.00 /min Jovan F Francisco BP Diastolic 2024-07-30 14:39:00 77 mm[Hg] Asad [...] Francisco BP Systolic 2023-01-17 09:23:00 147 mm[Hg] Step hen F Francisco BP Diastolic 2023-01-17 09:23:00 97 mm[Hg] Asad Singh Weight Measured 2023-01-17 09:23:00 231.20 pounds Jovan Singh Height Measured 2023-01-17 09:23:00 68.00 inches Jovan Singh Body Temperature 2023-01-17 09:23:00 97.50 degrees Jovan Singh Heart Rate 2023-01-17 09:23:00 90.00 /min Erma Singh Respiratory Rate 2023-01-17 09:23:00 Jovan Singh Encounters Start Date/Time End Date/Time Encounter Type Admission Type Attending [facility] Care Department Encounter ID Source 2024-12-28 16:35:27 2024-12-28 16:35:27 Outpatient SFA [id number] [id number] Jovan Singh 2024-12-28 00:00:00 2024-12-28 00:00:00 Outpatient Visit SFA [id number] Jovan Singh 2024-07-30 14:37:00 2024-07-30 14:37:00 Outpatient SFA [id number] [id number] Jovan Singh 2024-07-30 00:00:00 2024-07-30 00:00:00 Outpatient Visit SFA [id number] Jovan Singh 2024-01-17 13:10:57 2024-01-17 13:10:57 Outpatient SFA [id number] [id number] Jovan Singh 2023-08-27 14:47:32 2023-08-27 14:47:32 Outpatient SFA [id number] [id number] Jovan Singh 2023-01-22 09:07:10 2023-01-22 09:07:10 Outpatient SFA [id number] [id number] Jovan Singh 2023-01-17 09:23:32 2023-01-17 09:23:32 Outpatient SFA [id number] [id number] Jovan Singh Results Test Description Test Time Test Comments Results Result Co mments Source COMPREHENSIVE METABOLIC [id number] 05:43:25* Test Item Value Reference Range Interpretation Comme nts GLUCOSE (test code = 2216) 99 MG/DL 70-99 BUN (test code = 2207) 14 MG/DL 6-20 CREATININE (test code = 2213) 0.92 MG/DL 0.80-1.40 eGFR (2020 CKD-EPI) (test code = 00311) 114 ML/MIN/1.73 >60 CALC BUN/CREAT (test code = 2234) 15 RATIO 6-28 SODIUM (test code = 223) 143 MEQ/L 133-146 POTASSIUM (test code = 2228) 4.9 MEQ/L 3.5-5.4 CHLORIDE (test code = [...] 104 U/L 40-112 AST (test code = 221) 57 U/L 9-50 H ALT (test code = 2219) 54 U/L 5-50 H [facility] has impo rtant pathology staff changes effective 01/09/2023. New pathology staff will provide uninterrupted, excellent patient care and clinical consultation. See URL: [email or web address]. UNLESS OTHERWISE INDICATED, ALL TESTING PERFORMED AT [facility] [address] [place] [id number] [employer] UNDERWRITER: AMI CHU M.D. CLIA NUMBER [id number] [facility] [place]. [id number] HEMOGLOBIN [id number] 04:25:41* Test Item Value Reference Range Interpretation Comme nts HEMOGLOBIN A1c (test code = 61097) 5.7 % 4.2-5.6 H [employer] GUIDELINES FOR HGB A1C: [...] OR LABORATORY CONSULTATION. CBC W/AUTO DIFF WITH [id number] 03:40:15* Test Item Value Reference Range Interpretation [...] = 1065) 0.0 /100 WBC'S See_Comment [Automated Phonitive - [employer]] The system which generated this result transmitted [...] 0.00-0.10 ABS NUCLEATED RBCS (test code = 87875) 0.00 K/UL 0.00-0.11 CBC W/AUTO [id number] 00:00:00* Test Item Value Reference Range Interpretation [...] ABS NUCLEATED RBCS (test cod e = 36419) 0.00 K/UL Jovan F AustinHEMOGLOBIN [id number] 00:00:00* Test Item Value Reference Range Interpretation Comme nts HEMOGLOBIN A1c (test code = 19342) 5.7 % Jovan SinghLIPID [id number] 00:00:00* Test Item Value Reference Range Interpretation Comme nts CHOLESTEROL (test code = 2210) 163 MG/DL TRIGLYCERIDES (test code = 2232) 246 MG/DL HDL CHOLESTEROL (test code = 2220) 27 MG/DL CALC LDL CHOL (test code = 2237) 99 MG/DL RISK RATIO LDL/HDL (test cod e = 2238) 3.67 RATIO Jovan SinghCOMPREHENSIVE METABOLIC [id number] 00:00:00* Test Item Value Reference Range Interpretation Comme nts GLUCOSE (test code = 2217) 99 MG/DL BUN (test code = 2208) 14 MG/DL CREATININE (test code = 2214) 0.92 MG/DL eGFR (2020 CKD-EPI) (test code = 54758) 114 ML/MIN/1.73 CALC BUN/CREAT (test code = [...] (test code = 2219) 54 U/L Jovan SinghCBC W/AUTO [id number] 00:00:00* Test Item Value Reference Range Interpretation [...] ABS NUCLEATED RBCS (test cod e = 48536) 0.00 K/UL Jovan SinghHEMOGLOBIN [id number] 00:00:00* Test Item Value Reference Range Interpretation Comme nts HEMOGLOBIN A1c (test code = 18939) 5.7 % Jovan SinghLIPID [id number] 00:00:00* Test Item Value Reference Range Interpretation Comme nts CHOLESTEROL (test code = 2210) 163 MG/DL TRIGLYCERIDES (test code = 2232) 246 MG/DL HDL CHOLESTEROL (test code = 2220) 27 MG/DL CALC LDL CHOL (test code = 2237) 99 MG/DL RISK RATIO LDL/HDL (test cod e = 2238) 3.67 RATIO Jovan SinghCOMPREHENSIVE METABOLIC [id number] 00:00:00* Test Item Value Reference Range Interpretation Comme nts GLUCOSE (test code = 2217) 99 MG/DL BUN (test code = 2208) 14 MG/DL CREATININE (test code = 2214) 0.92 MG/DL eGFR (2020 CKD-EPI) (test code = 07552) 114 ML/MIN/1.73 CALC BUN/CREAT (test code = [...] code = 2219) 54 U/L Jovan Singh Notes Date/Time Note Provider Source Jovan Singh [facility]2024-09-19 00:00:00 Jovan Razo [facility]
--- NOTE | 2025-08-22 12:14 | ER ---
Nurse's Notes [facility] Name: Ottoniel Madrigal Age: 35 yrs Sex: Male : 1990 Arrival Date: 08/22/2025 Time: 11:51 Bed 12 Private MD: Diagnosis: Allergic rhinitis, unspecified;Polyp of nasal cavity Presentation: 08/22 12:04 Chief complaint: Patient states: NASAL POLYPS THAT HAVE SWOLLEN AND MAKING IT DIFFICULT dd2 TO BREATH THROUGH NOSE. Coronavirus screen: At this time, the client does not indicate any symptoms associated with coronavirus-19. Ebola Screen: No symptoms or risks identified at this time. Initial Sepsis Screen: Does the patient meet any 2 criteria? No. Patient's initial sepsis screen is negative. Does the patient have a suspected source of infection? No. Patient's initial sepsis screen is negative. Risk Assessment: Do you want to hurt yourself or someone else? Patient reports no desire to harm self or others. Onset of symptoms is unknown. 12:04 Method Of Arrival: Ambulatory dd2 12:04 Acuity: LETHA 4 dd2 Triage Assessment: 12:07 General: Appears in no apparent distress. uncomfortable, Behavior is calm, cooperative, dd2 appropriate for age. Pain: Denies pain. EENT: Nares bilaterally NASAL POLYPS. Neuro: No deficits noted. Cardiovascular: No deficits noted. Respiratory: No deficits noted. Airway is patent Respiratory effort is even, unlabored, Respiratory pattern is regular, symmetrical. GI: No deficits noted. No signs and/or symptoms were reported involving the gastrointestinal system. : No deficits noted. No signs and/or symptoms were reported regarding the genitourinary system. Derm: POLYPS IN [place]. Musculoskeletal: No deficits noted. No signs and/or symptoms reported regarding the musculoskeletal system. Historical: - Allergies: 12:07 Ceclor; dd2 - PMHx: 12:07 Asthma; NASAL POLYPS (Asthma); dd2 - PSHx: 12:07 None; dd2 - Immunization history:: Adult Immunizations up to date. - Infectious Disease History:: Denies. - Social history:: Smoking status: Patient denies any tobacco usage or history of. - Family history:: not pertinent. - Hospitalizations: : No recent hospitalization is reported. Screenin:24 [facility] ED Fall Risk Assessment (Adult) History of falling in the last 3 months, ll1 including since admission No falls in past 3 months (0 pts) Confusion or Disorientation No (0 pts) Intoxicated or Sedated No (0 pts) Impaired Gait No (0 pts) Mobility Assist Device Used No (0 pt) Altered Elimination No (0 pt) Score/Fall Risk Level 0 - 2 = Low Risk Maintained a safe environment, Hourly rounding (assess needs \T\ fall precautionary measures) done. Abuse screen: Denies threats or abuse. Nutritional screening: No deficits noted. Tuberculosis screening: No symptoms or risk factors identified. Assessment: 12:09 Reassessment: SEE TRIAGE ASSESSMENT. dd2 12:24 Reassessment: No changes from previously documented assessment. Patient and/or family ll1 updated on plan of care and expected duration. Pain level reassessed. Patient is alert, oriented x 3, equal unlabored respirations, skin warm/dry/pink. Vital Signs: 12:04 BP 148 / 90; Pulse 83; Resp 17; Temp 98.4; Pulse Ox 100% on R/A; Weight 94.8 kg; Pain dd2 0/10; 12:35 BP 134 / 86; Pulse 80; Resp 17; Pulse Ox 100% ; ll1 12:04 Pain Scale: Adult dd2 ED Course: 11:54 Patient arrived in ED. sj2 11:56 Mateo Johnson MD is Attending Physician. rn 12:07 Triage completed. dd2 12:07 Arm band placed on right wrist. dd2 12:13 Clemencia Reece MD is Referral Physician. rn 12:25 Patient has correct armband on for positive identification. Provided Education on: ER ll1 procedures and process. 12:37 No provider procedures requiring assistance completed. Patient did not have IV access ll1 during this emergency room visit. Administered Medications: 12:24 Drug: Dexamethasone IM 10 mg IM once Route: IM; Site: right gluteus; ll1 12:36 Follow up: Response: No adverse reaction ll1 Medication: 12:25 VIS not applicable for this client. ll1 Outcome: 12:13 Discharge ordered by . rn 12:37 Patient left the ED. ll1 12:37 Discharged to home ambulatory, ll1 12:37 Condition: stable 12:37 Discharge instructions given to patient, Instructed on discharge instructions, follow up and referral plans. medication usage, Demonstrated understanding of instructions, follow-up care, medications, Prescriptions given X 1, Signatures: Mateo Johnson MD MD rn Lewis, Lynsay, RN RN ll1 GARETT GIORDANO RN RN dd2 Stewart Velazquez 2 Corrections: (The following items were deleted from the chart) 12:09 12:04 Pulse 83bpm; Resp 17bpm; Pulse Ox 100% RA; Temp 98.4F; 94.8 kg; Pain 0/10, Adult; dd2 dd2
--- NOTE | 2025-08-22 12:14 | EDPHYS ---
Physician Documentation [facility] Name: Ottoniel Madrigal Age: 35 yrs Sex: Male : 1990 Arrival Date: 08/22/2025 Time: 11:51 Bed 12 Private MD: ED Physician Mateo Johnson HPI: 08/22 12:08 This 35 yrs old Male presents to ER via Ambulatory with complaints of Nasal Congestion rn - SWOLLEN NASAL POLYPS. 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 Denies any symptoms of infection. No fever or chills. Reports the only thing that helps him is prednisone. No trauma.. Historical: - Allergies: 12:07 Ceclor; dd2 - PMHx: 12:07 Asthma; NASAL POLYPS (Asthma); dd2 - PSHx: 12:07 None; dd2 - Immunization history:: Adult Immunizations up to date. - Infectious Disease History:: Denies. - Social history:: Smoking status: Patient denies any tobacco usage or history of. - Family history:: not pertinent. - Hospitalizations: : No recent hospitalization is reported. ROS: 12:08 Constitutional: Negative for fever, chills, and weight loss, ENT: Positive for nasal rn polyps Respiratory: Negative for shortness of breath, cough, wheezing, and pleuritic chest pain, Exam: 12:08 Constitutional: This is a well developed, well nourished patient who is awake, alert, rn and in no acute distress. ENT: Large left nasal polyp that occludes left nostril. No evidence of abscess. Right nostril nonobstructed. No stridor Respiratory: Speaking full sentences, unlabored. Vital Signs: 12:04 BP 148 / 90; Pulse 83; Resp 17; Temp 98.4; Pulse Ox 100% on R/A; Weight 94.8 kg; Pain dd2 0/10; 12:35 BP 134 / 86; Pulse 80; Resp 17; Pulse Ox 100% ; ll1 12:04 Pain Scale: Adult dd2 MDM: 11:56 Medical Screening Exam initiated rn 12:08 Differential Diagnosis: Other Allergic rhinitis, nasal polyps. Data reviewed: vital rn signs, nurses notes, and as a result, I will discharge patient. Counseling: I had a detailed discussion with the patient and/or guardian regarding the historical points, exam findings, and any diagnostic results supporting the discharge/admit diagnosis, the need for outpatient follow up, to return to the emergency department if symptoms worsen or persist or if there are any questions or concerns that arise at home. Special discussion: I discussed with the patient/guardian in detail that at this point there is no indication for admission to the hospital. It is understood, however, that if the symptoms persist or worsen the patient needs to return immediately for re-evaluation. Based on the history and exam findings, there is no indication for further emergent testing or inpatient evaluation. I discussed with the patient/guardian the need to see the ENT specialist for further evaluation of the symptoms. Administered Medications: 12:24 Drug: Dexamethasone IM 10 mg IM once Route: IM; Site: right gluteus; ll1 12:36 Follow up: Response: No adverse reaction ll1 Disposition Summary: 08/22/25 12:13 Discharge Ordered Notes: Location: Home rn Problem: chronic rn Symptoms: are unchanged rn Condition: Stable rn Diagnosis - Allergic rhinitis, unspecified rn - Polyp of nasal cavity rn Followup: rn - With: Clemencia Reece MD - When: As needed - Reason: Recheck today's complaints, Re-evaluation by your physician Discharge Instructions: - Discharge Summary Sheet rn - Allergies, Adult rn - Nasal Polyps rn Forms: - Medication Reconciliation Form rn - Antibiotic help desk intern - Prescription Opioid Use rn - Patient Portal Instructions rn - Leadership Thank You Letter rn Prescriptions: - Prednisone 20 mg Oral Tablet - take 3 tablets ORAL route once daily for 5 days; 15 tablet; Refills: 0, Product rn Selection Permitted Signatures: Mateo Johnson MD MD rn Lewis, Lynsay RN RN ll1 GARETT GIORDANO RN RN dd2
[2025-08-22 19:37] VITALS: BP 148/90; TEMP 98.4; O2SAT 100
== END 2025-08-22 12:37 | disposition home or self-care (01) ==
LOC: ER 11:51
DX: J30.9 Allergic rhinitis, unspecified (principal); J33.9 Nasal polyp, unspecified
CPT/HCPCS: 96372; 99284; J1100